=== PATIENT | female | born 1985 | race Caucasian/White ===

== ENCOUNTER 2021-02-18 00:40 | Day surgery (SDC) | payer OTHER, SELFPAY ==
[2021-02-09 14:09] VITALS: BMI 29.0
--- NOTE | 2021-02-17 12:10 | WPDANESEPPF ---
Anes - Initial Pre Proc Eval Procedure: Operation Date: 02/18/21 10:30 Proposed Procedures p Bilateral Breast Mastopexy - Isaiah Way MD s Bilateral Augmentation Mammoplasty With Galaflex - Isaiah Way MD Date/Time: 02/17/21 12:10 Surgeon: Isaiah Way MD Pre Op Diagnosis: skin laxity Patient Data Age: 35 Gender: F Height: 1.68 m Weight: 81.8 kg Allergies Allergy/AdvReac Type Severity Reaction Status Date / Time No Known Allergies Allergy Unknown Unverified 02/18/21 08:38 Home Medications Medication Instructions Recorded Confirmed Type oxycodone 5 mg tablet 5 mg PO Q8H PRN 11/04/20 02/18/21 History carisoprodol 350 mg tablet 350 mg PO TID PRN #21 tablet 02/03/21 02/18/21 Rx docusate sodium 100 mg capsule 100 mg PO DAILY #14 cap 02/03/21 02/18/21 Rx ondansetron HCl 4 mg tablet 4 mg PO Q8H #21 tablet 02/03/21 02/18/21 Rx oxycodone-acetaminophen 5 mg-325 1 tablet PO Q6H PRN #15 tablet 02/03/21 02/18/21 Rx mg tablet Patient hx anesthesia problems: none Family hx anesthesia problems: none PMFSH Past Medical History Medical History (Updated 02/17/21 @ 12:11 by Rajeev Fosetr MD) Micromastia Overweight (BMI 25.0-29.9) PONV (postoperative nausea and vomiting) Family History Family History Mother Family history of malignant neoplasm of breast in first degree relative Social History Social History Smoking status: Unknown if ever smoked Alcohol intake: current Living arrangements: with family Additional occupation/education comments: [employer] Gender identity (if verbalized by the patient): Female Spiritual care concerns: No Anes - Eval Final PreProcedure Day of Procedure 02/17/21 12:10 Patient weight: overweight Heart: regular rate and rhythm Lungs: clear to auscultation and normal air movement Airway: Mallampati scale class II Neurological: alert and oriented Last oral intake: >/= 8 hours ASA classification: II Emergent: no Anesthetic plan: proceed Anesthesia type and monitoring: general LMA Informed Consent: The patient's anesthetic plan and its attendant risks and benefits were discussed with the patient/family/POA. Questions were solicited and answers provided to the satisfaction of the patient/family/POA.
[2021-02-18] VITALS (11 sets, daily range): BP systolic 103–134; BP diastolic 61–77; PULSE 68–91; RESP 11–16; TEMP 36.4–37.4; O2SAT 93–100
[2021-02-18 08:52] LABS: Urine Cotinine NEGATIVE
[2021-02-18] MEDS: LACTATED RINGERS 1,000 ML 30 ML IV CONT ×2 (09:04→13:35)
[2021-02-18] MEDS: SCOPOLAMINE 1.5 MG PATCH TRANSDERM (09:38)
--- NOTE | 2021-02-18 10:03 | WPDHPUPDATE1 ---
History and Physical Update Update Date/Time: 02/18/21 10:03 History and Physical has been reviewed, including an updated exam of the patient. There are NO changes in the patient's condition. Risks, benefits, and alternatives have been discussed and questions answered. Patient agrees to proceed with procedure.
--- NOTE | 2021-02-18 10:27 | P.OP_ITS ---
Procedure Note - Detailed Date of Procedure 02/18/21 Pre-op Diagnosis Micromastia, breast ptosis Post-op Diagnosis other Procedure Performed Bilateral Augmentation Mastopexy with Galaflex Surgeon Isaiah Way MD Anesthesia general Findings Inverted T Superior Medical Pedicle Bilateral Quinn Vu Soft Touch 350cc Right - REF# [id number] SN [id number] Left - REF# [id number] SN [id number] Galaflex Scafold REF# [id number] Lot# [id number] Description of Procedure She is here today for bilateral breast augmentation, mastopexy, Galaflex. Previously and again today the risks, benefits, alternatives were discussed in extensive detail. I wanted her to be very realistic about the risks involved as well as expectations. We discussed aftercare and what to monitor for. Made sure answered all of her questions to her satisfaction today and consent was obtained. Marked in the preoperative holding area with their verification. The patient was taken to the operating room placed supine on the operating table. Anesthesia was provided by anesthesiology. A surgical time-out was taken. We cleansed the skin and 1% lidocaine and 0.25% Marcaine with epinephrine was used anesthetize as a field block. She was prepped and draped in a standard sterile fashion. Tegaderm nipple Reece were placed. A 15 blade used to make an incision superior to the inframammary fold. I de-epithelialized a small portion just superior to the IMF to help protect the T junction. Dissection was continued at 45 degree angle until the chest wall as identified. I incised the pectoralis major along its inferior border and completely released the inferior border leaving the medial border intact. I created a subpectoral pocket in the appropriate dimensions based on our preoperative planning for the implant. I then copiously irrigated with saline solution and verified a strict hemo stasis. Next the use a triple antibiotic and Betadine containing solution to irrigate the pocket. I washed my gloves with the triple antibiotic and Betadine solution. We washed the implant immediately upon opening it with this solution and only opened it when we needed it. I used implant funnel and no-touch technique. The implant was introduced into the pocket using the funnel. Having verified positioning of the implant this was closed using 2-0 Vicryl. I then tailor tacked the breast into place and placed in a sitting position. NAC was marked out based on pre-operative planning and intraoperative measurements / observations. I then proceeded with de epithelialization of the superior medial pedicle. Resected just the central portion and elevated medial and lateral flaps in order to provide good approximation. Galaflex was sutured into place using 2-0 Vicryl and along the IMF border. I then closed the breast using 1 Stratafix along the IMF. 2-0 PDS along the vertical. I inset the nipple areola with 3-0 Monocryl. The IMF with 3-0 Monocryl. I used 3-0 strata Fix long IMF and closed everything using running subcuticular 4-0 Biosyn and tissue glue. Fluffs, Fantasma wrap, and surgical bra were placed. Patient was awoke and taken to PACU without difficulty. All instrument sponge counts were correct at the end of the case. Estimated Blood Loss 50 Drains No Packing No Pathology none sent Complications No immediate complications Condition stable Disposition PACU
[2021-02-18] MEDS: TRANEXAMIC ACID 1,000MG/ISO100 1,000 MG/100 ML BAG 200 MG IVPB (10:47)
[2021-02-18] MEDS: ceFAZolin 2 GM/D5W 50 ML 2 GM/50 ML BAG IVPB (10:49)
[2021-02-18] MEDS: BUPIVACAINE HCL 0.25% PF 30 ML VIAL INFILTRATE (11:00)
--- NOTE | 2021-02-18 11:53 | SUR.OPER ---
BILATERAL BREAST IMPLANTS SSL 350CC [facility] SOFT TOUCH RIGHT SN [id number], EXP 2025-05-26 LEFT SN [id number], EXP 2025-03-23. GALAFLEX LOT [id number], EXP 2023-02-25.
[2021-02-18] MEDS: fentaNYL CITRATE INJ (*CRX) 100 MCG/2 ML VIAL 25 MCG IV PUSH ×3 (14:01→14:45)
[2021-02-18] MEDS: ONDANSETRON INJ 4 MG/2 ML VIAL IV PUSH (14:16)
[2021-02-18] MEDS: oxyCODONE HCL (*CRX) 5 MG TAB IR PO (15:16)
--- NOTE | 2021-02-18 15:45 | SUR.PHASEII ---
Addendum entered by Lisa Graham RN 02/18/21 15:52: Patient awoken and states pain /. Does not appear in distress. Spoke with Dr. Foster, new orders received for IV Toradol. Original Note: Patient
[2021-02-18] MEDS: KETOROLAC 30 MG/ML VIAL (*BKC) IV PUSH (15:51)
== END 2021-02-18 16:25 | disposition home or self-care (01) ==
PROVIDERS: Visit Provider Surgery Plastic and Reconstructive Surgery
PROC: (CPT 19316; principal; 2021-02-18 10:30)
PROC: (CPT 19325; 2021-02-18 10:30)
DX: Z41.1 Encounter for cosmetic surgery (principal); N64.82 Hypoplasia of breast; N64.81 Ptosis of breast; Z79.899 Other long term (current) drug therapy
CPT/HCPCS: 19325; 19316; 15777 ×2; 80307; A9270; J0690; J1580; J1885; J2250; J2270; J2405; J2704; J3010; J7120

== ENCOUNTER 2021-08-22 15:16 | Emergency (ER) | payer OTHER, SELFPAY ==
--- NOTE | 2021-08-22 15:23 | ED.URI ---
HPI - URI/Sore Throat General Chief Complaint: Upper Respiratory Infection Stated Complaint: Sore Throat,Cough Time Seen by Provider: 08/22/21 15:23 Source: patient Mode of arrival: ambulatory Limitations: no limitations History of Present Illness HPI Narrative: 36-year-old female presents with complaint of sore throat for 5 days. Has had cough for 2 days. Taking ejxi-tpg-sgptzol [place] and Delsym DM. Voice is hoarse. Reports lots of drainage . Denies fever chills. Denies shortness of breath, chest pain. All systems reviewed and negative except as noted above. Related Data Home Medications Medication Instructions Recorded Confirmed levonorgestrel [Mirena] See Rx Instructions .ROUTE .COMPLEX 08/22/21 08/22/21 Allergies Allergy/AdvReac Type Severity Reaction Status Date / Time No Known Allergies Allergy Unknown Verified 08/22/21 15:20 Review of Systems Review of Systems: CONSTITUTIONAL: Denies fever, chills, or sweats. EYES: Denies visual changes, redness, or discharge. ENT: Denies rhinorrhea, congestion. Reports sore throat and hoarse voice. Denies otalgia. CARDIOVASCULAR: Denies chest pain, palpitations, or edema. RESPIRATORY: Reports cough. Denies dyspnea. GASTROINTESTINAL: Denies abdominal pain, nausea, vomiting, or diarrhea. GENITOURINARY: Denies dysuria or hematuria. SKIN: Denies rash or itching. MUSCULOSKELETAL: Denies back pain, joint pain, or myalgia. NEUROLOGIC: Denies headache, numbness, or weakness. PSYCHIATRIC: Denies anxiety or depression. All other systems reviewed are negative, except as documented in HPI. [facility] Past Medical History Medical History Micromastia Overweight (BMI 25.0-29.9) PONV (postoperative nausea and vomiting) Family History Family History Mother Family history of malignant neoplasm of breast in first degree relative Social History Social History Smoking status: Never smoker Alcohol intake: current Additional occupation/education comments: [employer] Gender identity (if verbalized by the patient): Female Spiritual care concerns: No Comments At time of signature, agree with nursing past medical, surgical, social and family history. There is no relevant family history pertinent to the presenting complaint. Exam Narrative: GENERAL: This is a well-nourished, well-developed patient, in no apparent distress. HEAD: normocephalic, atraumatic. EYES: PERRL. Sclera clear/white. Vision is grossly intact. EARS: External ears normal, auditory canals clear and without drainage, TMs normal without perforation. Hearing grossly intact. NOSE: External nose normal with no obvious nasal discharge, nares without redness, no rhinorrhea. THROAT: Mucous membranes moist, posterior pharynx clear. Hoarse voice noted. NECK: Neck supple, non-tender without lymphadenopathy, masses or thyromegaly. CARDIOVASCULAR: Regular rate and rhythm without murmurs, gallops, or rubs. RESPIRATORY: Clear to auscultation. Breath sounds equal bilaterally. No wheezes, rales, or rhonchi. SKIN: warm, Dry, intact with no suspicious lesions or rash, good texture and turgor. NEURO: awake, alert, and oriented to person, place and time. There were no obvious focal neurologic abnormalities. EXTREMITIES: Normal range of motion of extremities. Course Course Level of Care: Express Care Visit Vital Signs Vital signs: Vital Signs Temperature 36.7 C 08/22/21 15:24 Pulse Rate 86 08/22/21 15:24 Respiratory Rate 16 08/22/21 15:24 Blood Pressure 131/74 08/22/21 15:24 Pulse Oximetry 100 08/22/21 15:24 Temperature 36.7 C 08/22/21 15:24 Pulse Rate 86 08/22/21 15:24 Respiratory Rate 16 08/22/21 15:24 Blood Pressure 131/74 08/22/21 15:24 Pulse Oximetry 100 08/22/21 15:24 Reviewed [facility] - URI
[2021-08-22 15:24] VITALS: BP 131/74; PULSE 86; RESP 16; TEMP 36.7; O2SAT 100
== END 2021-08-22 15:55 | disposition home or self-care (01) ==
PROVIDERS: Emergency Provider Nurse Practitioner Family
DX: J06.9 Acute upper respiratory infection, unspecified (principal); J04.0 Acute laryngitis
CPT/HCPCS: 87081; 87880; 99213; G0463

== ENCOUNTER 2025-03-30 08:53 | Emergency (ER) | payer OTHER, SELFPAY ==
--- OUTSIDE RECORDS SUMMARY | 2024-12-03 09:40 | XMS_ITS ---
Author Organization [facility] Address [address] [place], [place] [id number] Care Team Providers Care Electronic Instrument Trades Worker Name Role Phone JOCE HERNANDEZ Unavailable [phone] [facility], [facility] [place] [facility] Unava ilable Unavailable Allergies No Known Allergies REASON FOR VISIT *Orthotic follow-up Medications Medication SIG (Take, Route, Frequency, Duration) Notes Start Date End Date Status methylPREDNISolone 4 MG Tablet Therapy Pack as directed Orally one pack 07/27/2023 Ac tive Vital Signs Height 66 in 12/03/2024 Weight 200 lbs 12/03/2024 BMI 32.28 kg/m2 12/03/2024 Height-cm 167.64 cm 12/03/2024 Weight-kg 90.72 kg 12/03/2024 Encounters Encounter Location Date Provider Diagnosis [facility] [place] [id number] [facility] [address] [place], [place] [id number] 12/03/2024 JOCE HERNANDEZ Plan Of Treatment No Information Progress Notes * Kassidy FINLEY NDOB: [birth year] (40 yo F)Acc No.[id number]:12/03/2024 Patient: Kassidy Love Baldomero Provider: Mary Hernandez DPM :1985 A ge:39 Y S ex:Female Date:12/03/2024 Address:[address] [place] [id number] Subjective: * Chief Complaints: * * Orthotic follow-up * Medical History: Acid reflux Medical History Verified * Surgical History: No Surgical History documented. Surgical History verified. * Hospitalization/Major Diagno stic Procedure: No Hospitalization Documented. Hospitalization Verified. * Family History: N o Family History documented.. F amily History Verified.. * Social History: Social History Verified. No Social History documented. * Medications: T akingmethylPREDNISolone 4 MG Tablet Therapy Pack as directed Orally , Notes to Pharmacist: one packMedication List reviewed and reconciled with the patientTaking methylPREDNISolone 4 MG Tablet Therapy Pack as directed Orally , Notes to Pharmacist: one packMedication List reviewed and reconciled with the patient * Allergies: N .K.D.A.yesAllergies Verified. Objective: * Vitals: W t:200lbs, Wt-k.72 kg, Ht: 66 in, Ht-cm: 167.64 cm, BMI:32.28Index, Body Surface Area: 2.05. Plan: * Immunizations: Immunization record has been reviewed and updated. * Electronic signature of JOCE HERNANDEZ DPM on 03/30/2025 at 08:57 AM TOBACCO DRIER OPERATOR Sign off status: Pending * Provider: Mary Hernandez DPM Date: 0 12/03/2024 Generated for Ernesto ocampo/Henri/Andres on: 1 05/30/2024 08:57 AM TOBACCO DRIER OPERATOR
--- OUTSIDE RECORDS SUMMARY | 2025-03-30 08:58 | XMS_ITS | Clinical Summary ---
Author Organization [facility] Address [address] [place] [id number] Care Team Providers Care Bone Crusher Name Role Phone None, Provider MD Primary Care Provider Unavaila ble Allergies No known active allergies Medications omeprazole (PRILOSEC) 10 MG capsule Take 1 capsule (10 mg total) by mouth daily. Active Social History Tobacco Use Types Packs/Day Years Used Date Smoking Tobacco: Never Smokeless Tobacco: Never Tobacco Cessation:Counseling Given: Not Answered Alcohol Use Standard Drinks/Week Comments Not Currently 0 (1 standard drink = 0.6 oz pur e alcohol) Comments No Sex and Gender Information Value Date Recorded Sex Assigned at Not on file Legal Sex Female 12:44 PM CDT Gender Identity Not on file Sexual Orientation Not on file Last Filed Vital Signs Vital Sign Reading Time Taken Comments Blood Pressure 143/86 10/09/2023 8:20 AM CDT Pulse 85 10/09/2023 8:20 AM CDT Temperature 36.8 C (98.2 F) 10/09/2023 8:20 AM CDT Respiratory Rate 18 10/09/2023 8:20 AM CDT Oxygen Saturation 99% 10/09/2023 8:20 AM CDT Inhaled Oxygen Concentration - - Weight 86.2 kg (190 lb) 10/09/2023 8:20 AM CDT Height 167.6 cm (5' 6) 10/09/2023 8:20 AM CDT Body Mass Index 30.67 10/09/2023 8:20 AM CDT Plan of Treatment Health Maintenance Due Date Last Done Comments Cervical Cancer Screening Pap Smear (Age 30 to 64) Every 3 Years 1987 Annual Physical 1990 Hepatitis C 2005 Hepatitis B Vaccines (1 of 3 - 19+ 3-dose series) 2006 HPV Vaccines (1 - 3-dose SCDM series) 2014 Cervical Cancer Screening Pap with HPV Testing (Age 30 to 64) Every 5 Years 2017 Cervical Cancer Screening with HPV 2017 COVID-19 Vaccine (3 - 2024- season) 2025 08/06/2020, 07/09/2020 Influenza Adult (#1) 2025 03/31/2023, 04/26/2022, 04/12/2021, Additional history exists DTaP, Tdap and Td Vaccines (3 - Td or Tdap) 05/04/2032 05/04/2022, 03/31/2012, 03/17/2006 Meningococcal Vaccine Aged Out 03/17/2006 No roxana fercho eligible based on patient's age to complete this topic Hepatitis A Vaccines Aged Out 09/30/2006, 03/23/20 06 No longer eligible based on patient's age to complete this topic Meningococcal B Vaccine Aged Out No l onger eligible based on patient's age to complete this topic Pneumococcal Vaccine: Pediatrics (0 to 5 Years) and At-Risk Patients (6 to 49 Years) Aged Out No longer eligible based on patient's age to complete this topic RSV Immunizations Under 20 Months Aged Out No longer eligible based on patient's age to complete this topic Insurance [employer] Care Teams Bone Crusher Relationship Specialty Start Date End Date None, Provider, MD PCP - General UNKNOWN PHYSICIAN SPECIALTY 12/17/22
--- OUTSIDE RECORDS SUMMARY | 2025-03-30 08:58 | XMS_ITS | Patient Health Record ---
Author Organization [facility] Address [address] [place], [place] [id number] Care Team Providers Care Electrical Maintenance Technician Name Role Phone JOCE HERNANDEZ Unavailable [phone] Medical [facility], [facility] [place] [employer] Unava ilable Unavailable Allergies No Known Allergies Reason For Referral Reason [facility] REFERRAL 202 5 ( ORTHOTICS ) FOOT INSRT REMV MOLD LNGTUDNL 4 UNITS ( 2 PAIRS ). KLL Diagnosis 1 Pain in right foot ( M79.671) Diagnosis 2 Left foot pain (M79. 672) Referred Organization [facility] Referred Provider JOCE HERNANDEZ Referred Address [address],[place], [phone] Referred Provider Specialty Podiatry Referral Priority Routine Reason [facility] REFERRAL REQ [facility]ST ( APPOINTMENT: 12/03/2024 ) Diagnosis 1 Pain in right foot ( M79.671) Diagnosis 2 Left foot pain (M79. 672) Diagnosis 3 Plantar fascial fibr omatosis (M72.2) Referral Organization [facility] Referring Provider First Name JOCE Referring Provider Last Name MARY Referring Provider Speciality Podiatry Referred Provider Medical [facility], [facility] Referred Provider Specialty General Prac mylene General Notes Bethanie Patel 12:38:29 PM >PER REFERRAL MANAGEMENT IF WE DO NOT RECEIVE A REFERRAL IN A WEEK. WE NEED TO REFAX THE REQUEST TO REFERRAL MANAGEMENT. REFAXED THE REQUEST TO REFERRAL MANAGEMENT. KLL Referral Priority Routine Reason [facility] WAIVER LETTE R ON FILE REFERRAL WAIVER ENDS ON 02/25/2025 Diagnosis 1 Pain in right foot ( M79.671) Diagnosis 2 Left foot pain (M79. 672) Referred Organization [facility] Referred Provider JOCE HERNANDEZ Referred Address [address],[place], [id number] Referred Provider Specialty Podiatry Referral Priority Routine Medications Medication SIG (Take, Route, Frequency, Duration) Notes Start Date End Date Status methylPREDNISolone 4 MG Tablet Therapy Pack as directed Orally one pack 07/27/2023 Ac tive Immunizations Vaccine Route Administration Date Status Comme nts Anthrax vaccine, for SC use Unknown 08/01/2015 Administ ered Anthrax vaccine, for SC use Unknown 10/03/2015 Administ ered Anthrax vaccine, for SC use Unknown 04/13/2016 Administ ered Hep A, Adult Unknown 03/23/2006 Administered Hep A, Adult Unknown 09/30/2006 Administered Influenza (split), 3 yrs and above Unknown 03/30/2016 A dministered Influenza (split), preservat debbi free, 6-35 months Unknown 03/23/2006 Administered Influenza (split), preservat debbi free, 6-35 months Unknown 08/02/2008 Administered Influenza virus vaccine, quadrivalent, live (LAIV4), for intranasal use Unknown 05/04/2013 Administered Influenza virus vaccine, quadrivalent, live (LAIV4), for intranasal use Unknown 03/29/2014 Administered Influenza virus vaccine, quadrivalent, live (LAIV4), for intranasal use Unknown 05/02/2015 Administered Influenza, high dose seasonal Unknown 04/18/2023 Admini stered Influenza, live, intranasal Unknown 04/28/2007 Administ ered Influenza, live, intranasal Unknown 04/04/2009 Administ ered Influenza, live, intranasal Unknown 05/01/2010 Administ ered Influenza, live, intranasal Unknown 03/31/2012 Administ ered Influenza, quadrivalent, spl it virus Unknown 03/10/2018 Administered Influenza, quadrivalent, spl it virus Unknown 03/02/2019 Administered Influenza, quadrivalent, spl it, preservative free, 3 years or older Unknown 04/01/2017 Administered Influenza, quadrivalent, spl it, preservative free, 3 years or older Unknown 04/14/2020 Administered Influenza, quadrivalent, spl it, preservative free, 3 years or older Unknown 04/12/2021 Administered Influenza, quadrivalent, spl it, preservative free, 3 years or older Unknown 03/31/2023 Administered Influenza, seasonal, injecta ble, preservative free, 6-35 months Unknown 06/04/2011 Administered IPV Unknown 03/17/2006 Administered Meningococcal Quadrivalent Unknown 03/17/2006 Administe red Moderna Covid-19 Vaccine 1st dose Unknown 07/09/2020 Ad ministered Moderna Covid-19 Vaccine 1st dose Unknown 08/06/2020 Ad ministered Novel [id number] Unknown 08/02/2009 Administered Td (adult), adsorbed Unknown 03/17/2006 Administered Tdap Unknown 03/31/2012 Administered Typhoid, ViCPs Unknown 08/01/2015 Administered Varicella Unknown 03/23/2006 Administered Vital Signs Height-cm 167.64 cm 10/08/2024 Weight-kg 90.72 kg 10/08/2024 Height 66 in 10/08/2024 Weight 200 lbs 10/08/2024 BMI 32.28 kg/m2 10/08/2024 Encounters Encounter Location Date Provider Diagnosis [facility] [address] [id number] 10/08/2024 JOCE SNOOK Lesion of plantar nerve, 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 ; Metatarsalgia, right foot M77.41 ; Metatarsalgia of left foot M77.42 ; Pain in right foot M79.671 and Left foot pain M79.672 [facility] [address] [id number] 11/05/2024 JOCE SNOOK Lesion of plantar nerve, 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 Discussed conservative care consisting of padding, wider shoes, anti-inflammatorie s, and orthotics. Discussed surgical treatment options and answered all questions about the intra-operative and post-operative treatment course. Orthotic Scan: The patient was scanned for functional orthotic devices. This was done in the subtalar joint neutral position in a non-weightbearing fashion. The patient will follow-up in 3-4 weeks time to be dispensed and fitted with the devices. 10/08/2024 Metatarsalgia, right foot (ICD-10 - M77.41) Metatarsalgia: I discussed anti-inflammatory treatment options and various means of immobilization with the patient. I educated the patient on icing and stretching, supportive shoegear, and the use of orthotic devices and bracing. 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 Discussed conservative care consisting of padding, wider shoes, anti-inflammatorie s, and orthotics. Discussed surgical treatment options and answered all questions about the intra-operative and post-operative treatment course. Orthotic Dispense: The orthotic devices were dispensed and fitted. It was noted that the orthotic conformed well to the patient's foot in the subtalar joint neutral position. The patient was educated on the device's use, as well as the gradual break-in period for the device. 11/05/2024 Metatarsalgia, right foot (ICD-10 - M77.41) Metatarsalgia: I discussed anti-inflammatory treatment options and various means of immobilization with the patient. I educated the patient on icing and stretching, supportive shoegear, and the use of orthotic devices and bracing. 10/08/2024 Metatarsalgia of left foot (ICD-10 - M77.42) 11/05/2024 Metatarsalgia of left foot (ICD-10 - M77.42) 11/05/2024 Pain in right foot (ICD-10 - M79.671) 10/08/2024 Pain in right foot (ICD-10 - M79.671) 10/08/2024 Left foot pain (ICD-10 - M79.672) 11/05/2024 Left foot pain (ICD-10 - M79.672) Plan Of Treatment No Information Insurance Providers Payer Name Payer Address Payer Phone Subscriber Number Group Number Insured Name Patient Relationship to Insured Coverage Start Date Coverage End Date [facility] [address] [phone] [id number] Kassidy Razo Self - patient is the insured Medical (General) History Medical History History ICD Code acid reflux
--- NOTE | 2025-03-30 09:03 | ED.GENADULT ---
HPI - General Adult General Chief complaint: Upper Respiratory Infection Stated complaint: Sore throat / Cough History of Present Illness HPI narrative: Kassidy Razo Is a 40-year-old female who presents today with complaints of having sore throat cough mild congestion the started about 4 days ago. She states that she thought she is feeling better but then woke up today with loss of her voice. She denies any fevers she has been taking Sudafed for symptoms. Related Data Home Medications ?Medication ?Instructions ?Recorded ?Confirmed ?Last Taken ?Type levonorgestrel (Mirena) See Rx Instructions .Route .COMPLEX 08/22/21 03/30/25 Unknown History omeprazole 20 mg capsule,delayed mg 03/30/25 Unknown History release Allergies Allergy/AdvReac Type Severity Reaction Status Date / Time No Known Allergies Allergy Unknown Verified 03/30/25 08:57 Review of Systems Review of Systems: All systems reviewed & are unremarkable except as noted in HPI and below PMFSH Past Medical History Medical History Overweight (BMI 25.0-29.9) PONV (postoperative nausea and vomiting) Micromastia Family History Family History Mother Family history of malignant neoplasm of breast in first degree relative Social History Social History Smoking status: Never smoker Alcohol intake: current Living arrangements: with family Occupation/Education: occupation Additional occupation/education comments: [employer] Gender identity (if verbalized by the patient): Female Spiritual care concerns: No Exam Narrative: GENERAL: Well-appearing, well-nourished, and in no acute distress. HEAD: Normocephalic, atraumatic. EYES: PERRLA and EOMI. ENT: Nares clear, no rhinorrhea or epistaxis. Mucous membranes moist. Oropharynx with mild erythema and without tonsillar hypertrophy exudate or other lesions. Bilateral TMs pearly garland nonbulging NECK: Supple. No adenopathy or masses. No carotid bruits or JVD CHEST: Clear to auscultation. No respiratory distress. No wheezes rales or rhonchi HEART: Regular rate and rhythm. No murmur heard. Normal peripheral pulses. EXTREMITIES: Normal range of motion. No edema. SKIN: Warm, dry, no rash. NEURO: No focal deficits. Alert and oriented x3. PSYCH: Normal mood and affect. Course Course Level of Care: Express Care Visit Medical Decision Making MDM Narrative Medical decision making narrative: This 40 year old patient presents with symptoms most suggestive of viral upper respiratory tract infection. Lungs are clear bilaterally without any respiratory distress or accessory muscle use. Strep- negative Strep culture- pending Patient discharged home in stable condition with expectant management. Return precautions were provided. Procedures: Pulse oximetry interpretation - not hypoxic. Review of medical records. DISPOSITION: Discharged home in stable condition. IMPRESSION: Acute upper respiratory tract infection, likely viral. Viral laryngitis Medical Records Medical records reviewed: Yes I reviewed the external patient's medical records. Lab Data Lab results reviewed: Yes I reviewed the patient's lab results. Discharge Plan Discharge Clinical Impression: Acute viral laryngitis Upper respiratory infection Qualifiers: URI type: unspecified viral URI Qualified Code(s): J06.9 - Acute upper respiratory infection, unspecified Patient Disposition: Home Condition: Stable Instructions: Antibiotic Form, Upper Respiratory Infection (ED) Additional Instructions: You may start to use Lozenges to help with your sore throat, voice rest to help regain your voice push hydration drinking plenty of fluids continue the OTC cold medications I would include Mucinex and Zyrtec to help as well Please follow up with your PCP in 1 week to ensure you are feeling better Viral infections can last 10-14 days, but I don't expect you to feel any worse then you do today, If you should develop shortness of breath, chest pain, lethargy, vomiting then proceed to the ER Patient Language: Thai Prescriptions: No Action Mirena 20 mcg/24 hours (7 yrs) 52 mg Intrauterine Device See Rx Instructions .ROUTE .COMPLEX Rx Instructions: 20 mcg intrauterinely omeprazole 20 mg capsule,delayed release(DR/EC) Follow-up/Referrals: HAWLEY, [Primary Care Provider] Stand Alone Forms: Work/School Release IP Time of Disposition: 09:24
[2025-03-30 09:05] VITALS: BP 133/77; PULSE 77; RESP 18; TEMP 36.6; O2SAT 99
[2025-03-30 09:28] LABS: EDSTREPNEGPOS1 Negative (Negative)
== END 2025-03-30 09:27 | disposition home or self-care (01) ==
PROVIDERS: Emergency Provider Nurse Practitioner Family
DX: J04.0 Acute laryngitis (principal); J06.9 Acute upper respiratory infection, unspecified
CPT/HCPCS: 87081; 87880; 99213; G0463